=== PATIENT | male | born 1970 | race Caucasian/White ===

== ENCOUNTER 2017-05-24 05:41 | Emergency (ER) | payer SELFPAY ==
[~2017-05-24] VITALS: Ht 175.3 cm; Wt 71.3 kg
[2017-05-24 05:45] VITALS: BP 135/88
[2017-05-24] MEDS ORDERED: LIDOCAINE 1%, 20ML SQ ONE (06:00)
[2017-05-24] MEDS ORDERED: LIDOCAINE 1%, 20ML ONE (06:04)
[2017-05-24] MEDS ORDERED: BACITRACIN ZINC OINT 500U/GM, 0.9 GM ONE (06:33)
== END 2017-05-24 07:02 | disposition home or self-care (01) ==
LOC: ED 06:51
DX: L60.0 Ingrowing nail (principal)
CPT/HCPCS: 11730; 99285; J3490

== ENCOUNTER 2019-05-25 09:19 | Emergency (ER) | payer OTHER ==
[~2019-05-25] VITALS: Ht 175.3 cm; Wt 82.7 kg
[2019-05-25 09:29] VITALS: BP 138/94
== END 2019-05-25 11:30 | disposition home or self-care (01) ==
LOC: ED 11:19
DX: S40.011A Contusion of right shoulder, initial encounter (principal); S60.011A Contusion of right thumb without damage to nail, initial encounter; S60.211A Contusion of right wrist, initial encounter; S20.211A Contusion of right front wall of thorax, initial encounter; V29.09XA Motorcycle driver injured in collision with other motor vehicles in nontraffic accident, initial encounter; Y93.55 Activity, bike riding; Y92.89 Other specified places as the place of occurrence of the external cause; Y99.8 Other external cause status
CPT/HCPCS: 29125; 99283